=== PATIENT | female | born 1975 | race Caucasian/White ===

== ENCOUNTER 2024-01-31 16:47 | Emergency (ER) | payer SELFPAY ==
[~2024-01-31] VITALS: Ht 154.9 cm; Wt 91.0 kg
[2024-01-31 17:09] VITALS: O2SAT 100
[2024-01-31 17:43] LABS: BASOPHILS % 0.1 % (0.0-2.0); EOSINOPHILS % 0.2 % (0.0-5.0); HEMATOCRIT. 38.2 % (36.0-48.0); HEMOGLOBIN. 13.1 g/dL (12.0-16.0); LYMPHOCYTES % 11.5 % (20.0-50.0); MEAN CORPUSCULAR HEMOGLOBIN 30.2 pg (28.0-32.0); MEAN CORPUSCULAR HGB CONC 34.2 g/dL (31.0-37.0); MEAN CORPUSCULAR VOLUME 88.4 fL (81.0-99.0); MEAN PLATELET VOLUME 9.1 fl (7.4-10.4); MONOCYTES % 5.4 % (2.0-8.0); NEUTROPHILS % 82.8 % (40.0-76.0); PLATELET 279 x1000/uL (130-400); RED BLOOD CELL COUNT 4.32 mill/uL (4.2-5.4); WHITE BLOOD COUNT 10.6 x1000/uL (4.5-11.0)
[2024-01-31 17:52] LABS: CHLORIDE 108 mEq/L (98-107); POTASSIUM 3.6 mEq/L (3.5-5.1); SODIUM 142 mEq/L (136-145)
[2024-01-31 17:53] LABS: CALCIUM 9.6 mg/dL (8.7-10.4); CARBON DIOXIDE 26 mEq/L (21-32)
[2024-01-31 17:58] LABS: CREATININE 0.9 mg/dL (0.6-1.0); GLUCOSE 93 mg/dL (70-105); UREA NITROGEN BLOOD 7 mg/dL (9-23)
[2024-01-31 18:03] LABS: TROPONIN I HIGH SENSITIVITY < 4 ng/L (3.0-34)
[2024-01-31 18:11] LABS: HCG SCREEN NEGATIVE
[2024-01-31] MEDS ORDERED: AMOX1TAB16 MT (18:33)
[2024-01-31] MEDS ORDERED: FLUT15.844 BOTHNSTRLS (18:33)
[2024-01-31 18:43] VITALS: BP 124/72; PULSE 88; RESP 18; TEMP 36.78072; O2SAT 100
== END 2024-01-31 18:44 | disposition home or self-care (01) ==
LOC: ER 16:47
DX: J32.9 Chronic sinusitis, unspecified (principal)
CPT/HCPCS: 36415; 71045; 80048; 84484; 84703; 85025; 93005; 99285